=== PATIENT | female | born 1955 | race Native Hawaiian/Other Pacific Islander ===

== ENCOUNTER 2020-09-26 12:06 | Outpatient (CLI) | payer BC ==
[~2020-09-26 12:06] MED LIST: CLONIDINE0.1 MG PO; FURO20TA67 PO; METO50TA63 PO; NEXIUM20 M1 PO
== END 2020-09-26 23:59 | disposition home or self-care (01) ==
LOC: RAD 12:06
PROVIDERS: ATTEND Nurse Practitioner Primary Care
DX: J20.8 Acute bronchitis due to other specified organisms (principal)